=== PATIENT | female | born 1975 | race Hispanic/Latino ===

== ENCOUNTER 2022-10-13 06:06 | Emergency (ER) | payer SELFPAY ==
[~2022-10-13] VITALS: Ht 154.9 cm; Wt 88.5 kg
[2022-10-13] MEDS ORDERED: ONDANSETRON HCL INJ 2MG/ML 2ML 2 MG/ML VIAL IV STA (06:23)
[2022-10-13] MEDS ORDERED: DICYCLOMINE HCL 20 MG/2 ML VIAL IM ONE ×2 (06:30→06:40)
[2022-10-13] MEDS ORDERED: SODIUM CHLORIDE 0.9% 1000ML 1,000 ML IV ONE (06:30)
[2022-10-13] MEDS ORDERED: SODIUM CHLORIDE 0.9% 1000ML 1,000 ML ONE (06:40)
[2022-10-13] MEDS ORDERED: ONDANSETRON HCL INJ 2MG/ML 2ML 2 MG/ML VIAL ONE (06:40)
[2022-10-13] MEDS ORDERED: Morphine 4mg INJECTION 4 MG/ML INJ IV STA ×2 (06:51→08:26)
[2022-10-13 06:54] LABS: BASOPHILS # (AUTO) 0.1 (0.0-0.1); BASOPHILS % 0.8 % (0.0-1.0); EOSINOPHILS # (AUTO) 0.2 (0.0-0.4); EOSINOPHILS % 1.9 % (0.0-6.0); LYMPHOCYTES % 35.5 % (18.0-39.1); MEAN CORPUSCULAR HEMOGLOBIN 30.5 pg (28-32); MEAN CORPUSCULAR HGB CONC 31.1 g/dL (31-35); MONOCYTES # (AUTO) 0.8 (0.2-0.8); MONOCYTES % 9.1 % (4.4-11.3); NEUTROPHILS # (AUTO) 4.3 (2.1-6.9); NEUTROPHILS % 52.1 % (38.7-80.0); PLATELET COUNT 441 x10e3/uL (140-360); RED BLOOD COUNT 4.59 x10e6/uL (3.6-5.1); RED CELL DISTRIBUTION WIDTH 13.1 % (11.7-14.4)
[2022-10-13 07:06] LABS: LIPASE 47 U/L (8-78); MAGNESIUM 1.9 MG/DL (1.3-2.1)
[2022-10-13 07:08] LABS: ALANINE AMINOTRANSFERASE 19 IU/L (0-55); ALBUMIN 4.1 g/dL (3.5-5.0); ALBUMIN/GLOBULIN RATIO 1.4 (0.8-2.0); ALKALINE PHOSPHATASE 59 IU/L (40-150); ANION GAP 14.1 mmol/L (8-16); BLOOD UREA NITROGEN 15 mg/dL (7-26); BUN/CREATININE RATIO 19 (6-25); CALCIUM 8.9 mg/dL (8.4-10.2); CARBON DIOXIDE 23 mmol/L (22-29); CHLORIDE 108 mmol/L (98-107); CREATINE KINASE 86 IU/L (29-168); GLUCOSE 115 mg/dL (74-118); POTASSIUM 4.1 mmol/L (3.5-5.1); SODIUM 141 mmol/L (136-145)
[2022-10-13] MEDS ORDERED: IOPAMIDOL 370 MG/ML 100 ML INFUS..BTL INJ ONE (09:57)
[2022-10-13] MEDS ORDERED: PANTOPRAZOLE SO40 MG PO (10:13)
[2022-10-13] MEDS ORDERED: DICYCLOMINE HCL20 MG PO (10:13)
[2022-10-13] MEDS ORDERED: ONDANSETRON ODT4 MG PO (10:13)
[2022-10-13] MEDS ORDERED: HYDROCODONE/APAP 7.5MG-325MG 1 EA TAB PO ONE (10:30)
[2022-10-13 10:44] VITALS: BP 141/91
== END 2022-10-13 10:26 | disposition home or self-care (01) ==
LOC: ER 06:13
DX: R10.13 Epigastric pain (principal); R10.11 Right upper quadrant pain; F41.9 Anxiety disorder, unspecified
CPT/HCPCS: 36415; 74177; 80053; 82550; 82553; 83690; 83735; 84484; 84702; 85025; 93005; 99284; C9113; J0500; J2270; J2405; J7030; Q9967